=== PATIENT | male | born 1975 | race African-American/Black ===

== ENCOUNTER 2020-05-11 19:00 | Emergency (ER) | payer MEDICAID, MEDICARE ==
[~2020-05-11] VITALS: Ht 175.3 cm; Wt 99.8 kg
[2020-05-11 19:51] VITALS: BP 137/99
[2020-05-11] MEDS ORDERED: KETOROLAC TROMETH 60MG/2ML VIAL IM ONE (21:00)
== END 2020-05-11 22:10 | disposition home or self-care (01) ==
LOC: ER 19:00
DX: S96.111A Strain of muscle and tendon of long extensor muscle of toe at ankle and foot level, right foot, initial encounter (principal); J45.909 Unspecified asthma, uncomplicated; X58.XXXA Exposure to other specified factors, initial encounter; Y93.89 Activity, other specified; Y92.89 Other specified places as the place of occurrence of the external cause; Y99.8 Other external cause status
CPT/HCPCS: 73110; 96372; 99283; J1885